=== PATIENT | female | born 1960 | race Caucasian/White ===

== ENCOUNTER 2017-04-04 07:04 | Emergency (ER) | payer OTHER ==
[2017-04-04 07:14] VITALS: BP 153/92
[2017-04-04] MEDS ORDERED: Tetracaine 0.5% OPTH.SOL 4 ML* 1 DROP BTL LEFT EYE ONE (07:24)
[2017-04-04] MEDS ORDERED: Fluorescein Sodium TOPICAL* 1 MG TEST OPHTHALMIC ONE (07:24)
[2017-04-04] MEDS ORDERED: HYDROcodone/ACETAMIN 5-325 MG* 1 TAB PO ONE (07:29)
[2017-04-04] MEDS ORDERED: Erythromycin OPTH OINT* APPLIC OINT LEFT EYE ONE (07:55)
--- NOTE | 2017-04-04 12:35 | UC ---
Larry Caban Angela, scribed for Jacquie Pyle DO on 04/04/17 at 0718 . Eye Complaint HPI - HPI Summary HPI Summary: This pt is a 57 y/o female presenting to [facility] c/o left eye pain since 04:00 this morning. She states her pain woke her up from sleep, and it was painful before opening her eye. Pt denies any known injury or trauma to her eye. Pt reports she did open her eye today in the morning and was able to see to out off it. Currently notes her left eye is blurry. Her pain is aggravated with movement of eyeball from side to side. Pt describes her pain as a "sharp rock inside" and feels like it is on the top. Denies headache, chills, fever, nausea , vomiting, chest pain, cough, rash. She denies wearing contacts. Pt notes she is taking an anti-seizure medication (Carbatrol) for new left sided facial twitching of her cheek. She is being followed up by Dr. Graham. - History of Current Complaint Stated Complaint: PAIN L EYE Time Seen by Provider: 04/04/17 07:10 Hx Obtained From: Patient Hx Last Menstrual Period: post menopause Onset/Duration: Lasting Hours, Still Present Severity Currently: Severe Pain Intensity: 8 Pain Scale Used: 0-10 Numeric Aggravating Factor(s): Other - moving eyeball from side to side Alleviating Factor(s): Nothing Associated Signs And Symptoms: Positive: Negative - Allergies/Home Medications Allergies/Adverse Reactions: Allergies Allergy/AdvReac Type Severity Reaction Status Date / Time No Known Allergies Allergy Verified 04/04/17 07:14 Home Medications: Home Medications Carbamazepine [Carbatrol] 100 mg PO BID 04/04/17 [History Confirmed 04/04/17] PMH/Surg Hx/FS Hx/Imm Hx Other Endocrine History: DENIES: diabetes Other Cardiovascular History: DENIES: HTN - Surgical History Surgical History: Yes Surgery Procedure, Year, and Place: LEFT breast abscess removal - Family History Known Family History: Positive: Diabetes - Daughter - type 1 DM, Other - asthma - Social History Alcohol Use: Occasionally Substance Use Type: None Smoking Status (MU): Never Smoked Tobacco - Immunization History Most Recent Influenza Vaccination: declines Most Recent Tetanus Shot: UTD Review of Systems Constitutional: Negative Skin: Negative Eyes: Blurred Vision - left eye, Other - left eye pain ENT: Negative Respiratory: Negative Cardiovascular: Negative Gastrointestinal: Negative Genitourinary: Negative Motor: Negative Neurovascular: Negative Musculoskeletal: Negative Neurological: Negative Psychological: Negative Is Patient Immunocompromised?: No All Other Systems Reviewed And Are Negative: Yes Physical Exam Triage Information Reviewed: Yes Appearance: Well-Appearing, Well-Nourished Vital Signs: Initial Vital Signs Pulse 94 04/04/17 07:08 Resp 18 04/04/17 07:08 BP 153/92 04/04/17 07:08 Pulse Ox 98 04/04/17 07:08 Vital Signs Reviewed: Yes Eyes: Positive: Conjunctiva Inflamed, Other: - All pain including pain with movement of her eyeball resolves completely with application of tetracaine. There is a corneal abrasion across the diameter (approx. 1 cm) of the cornea as seen with fluorescein uptake. ENT: Positive: Hearing grossly normal. Negative: Muffled voice, Hoarse voice Neck exam: Normal Neck: Positive: Supple Respiratory: Positive: Lungs clear, Normal breath sounds, No respiratory distress, No accessory muscle use Cardiovascular: Positive: RRR, No Murmur Musculoskeletal Exam: Normal Neurological: Positive: Alert, Muscle Tone Normal Psychological Exam: Normal Psychological: Positive: Age Appropriate Behavior Skin Exam: Normal, Other - warm, dry, normal color Eye Complaint Course/Dx - Course Course Of Treatment: In the ED course, tetracaine was used. All pain including pain with movement of her eyeball resolves completely with application of tetracaine. There is a corneal abrasion across the diameter (approx. 1 cm) of the cornea as seen with fluorescein uptake. [07:53] I spoke with pharmacy in regards to drug interaction between anti-seizure medication (Carbamazapine) and erythromycin ointment. Pt will be discharged with a prescription for erythromycin ointment and percocet. She is advised to follow up with her opthalmologist, Dr. Guerra, tomorrow. Elevated blood pressure noted likely due to pt's condition. Medications reviewed. Allergies reviewed. - Differential Dx/Diagnosis Differential Diagnosis/HQI/PQRI: Conjunctivitis, Corneal Abrasion Provider Diagnoses: Corneal abrasion Discharge - Discharge Plan Condition: Stable Disposition: HOME Prescriptions: Erythromycin OPTH OINT* [Erythromycin 0.5% OPTH OINT*] 1 applic LEFT EYE QID #1 tube oxyCODONE/Acetamin 5/325 MG* [Percocet 5/325 TAB*] 1 tab PO Q4H PRN #14 tab MDD 6 tabs PRN Reason: Pain Patient Education Materials: Erythromycin (Into the eye), Corneal Abrasion (ED) Referrals: Jamel Guerra MD [Medical Doctor] - 1 Day (THIS FOLLOW UP VISIT IS IMPORTANT. WE WANT YOU TO BE EVALUATED AND FOLLOWED BY A SPECIALIST.) Martine Jerome MD [Primary Care Provider] - If Needed Additional Instructions: Oral narcotic given: You've been given an oral narcotic pain medication. The effects may begin 30 minutes to an hour after swallowing the medicine. You should have significant pain relief. The effects will usually last at least four hours. Most oral narcotics contain a dose of acetaminophen (Tylenol). Don't take any other acetaminophen-containing medicines until you've discussed it with the doctor. This drug is a narcotic -- it will impair your judgment, slow your reaction time, and make you sleepy. Narcotics also can cause nausea and constipation. If you feel sick, you should eat. A full stomach reduces the nausea that pain pills can cause. You should not drive or work with machinery (including blenders, knives, lawn mowers or sewing machines) for six to eight hours. Don't do anything requiring mental alertness until the effects of the medication are gone. Do not take any alcohol or sedatives, and don't use any other medication without checking with your physician. DISCUSSED, THIS MEDICATION CAN LOWER YOUR BLOOD PRESSURE. THIS CAN INCREASE YOUR RISK OF FAINTING AND FALLING. PLEASE TAKE CARE WHEN CHANGING POSITIONS SUCH GOING FROM SUPINE TO SITTING OR STANDING. The documentation as recorded by the Larry crump Angela accurately reflects the service I personally performed and the decisions made by me, Jacquie Pyle DO.
== END 2017-04-04 07:58 | disposition home or self-care (01) ==
LOC: UCEAST 07:04
DX: S05.02XA Injury of conjunctiva and corneal abrasion without foreign body, left eye, initial encounter (principal); X58.XXXA Exposure to other specified factors, initial encounter; Y93.9 Activity, unspecified; Y92.9 Unspecified place or not applicable
CPT/HCPCS: 99212; A9270-GY; G0463

== ENCOUNTER 2018-03-14 11:51 | Emergency (ER) | payer OTHER ==
[2018-03-14 12:04] VITALS: BP 126/79
--- NOTE | 2018-03-14 12:10 | UC ---
Elbow Pain - HPI Summary HPI Summary: 57 yo female presents with RIGHT elbow pain. She tells me that months ago she was playing tennis and felt a pull in her right elbow. Has been painful since that time. Worse with lifting, pushing, and pulling. She has been icing the area and taking NSAIDs with no relief. Denies specific injury, numbness, or tingling. - History of Current Complaint Chief Complaint: UCUpperExtremity Stated Complaint: ELBOW PAIN Time Seen by Provider: 03/14/18 12:09 Hx Obtained From: Patient Hx Last Menstrual Period: post menopause Onset/Duration: Weeks Severity Initially: Mild Severity Currently: Mild Pain Intensity: 2 Pain Scale Used: 0-10 Numeric - Allergies/Home Medications Allergies/Adverse Reactions: Allergies Allergy/AdvReac Type Severity Reaction Status Date / Time No Known Allergies Allergy Verified 03/14/18 12:04 Home Medications: Home Medications NK [No Home Medications Reported] 03/14/18 [History Confirmed 03/14/18] PMH/Surg Hx/FS Hx/Imm Hx - Additional Past Medical History Additional PMH: None - Surgical History Surgical History: Yes Surgery Procedure, Year, and Place: LEFT breast abscess removal - Family History Known Family History: Positive: Diabetes - Daughter - type 1 DM - Social History Occupation: Employed Full-time Lives: With Family Alcohol Use: Occasionally Substance Use Type: None Smoking Status (MU): Never Smoked Tobacco - Immunization History Most Recent Influenza Vaccination: declines Most Recent Tetanus Shot: UTD Review of Systems All Other Systems Reviewed And Are Negative: Yes Constitutional: Positive: Negative Skin: Positive: Negative Respiratory: Positive: Negative Cardiovascular: Positive: Negative Neurovascular: Positive: Negative Musculoskeletal: Positive: Other: - Right elbow pain Neurological: Positive: Negative Psychological: Positive: Negative Physical Exam - Summary Physical Exam Summary: GENERAL: NAD. WDWN. No pain distress. SKIN: No rashes, sores, lesions, or open wounds. CHEST: No accessory muscle use. Breathing comfortably and in no distress. CV: Pulses intact radial and ulnar. Cap refill <2seconds MSK: RIGHT ELBOW: TTP at medial epicondyle. Pain at medial epicondyle with middle finger flexion. FROM. Strength 5/5 including sales superintendent strength. No edema or obvious bony deformities. NEURO: Alert. Sensations intact hand and all fingers. PSYCH: Age appropriate behavior. Triage Information Reviewed: Yes Vital Signs: Initial Vital Signs Temp 97.2 F 03/14/18 12:00 Pulse 60 03/14/18 12:00 Resp 18 03/14/18 12:00 BP 126/79 03/14/18 12:00 Pulse Ox 100 03/14/18 12:00 Vital Signs Reviewed: Yes Elbow Pain Course/Dx - Course Course Of Treatment: Medial epicondylitis. She has tried NSAIDs, rest, braces, and ice - therefore will refer her to Sports Medicine for further evaluation. - Differential Dx/Diagnosis Provider Diagnosis: Medial epicondylitis Discharge - Sign-Out/Discharge Documenting (check all that apply): Patient Departure All imaging exams completed and their final reports reviewed: No Studies - Discharge Plan Condition: Stable Disposition: HOME Patient Education Materials: Tennis Elbow (ED) Referrals: Martine Jerome MD [Primary Care Provider] - [facility] [Provider Group] - As Soon As Possible Additional Instructions: If you develop a fever, shortness of breath, chest pain, new or worsening symptoms - please call your PCP or go to the ED. Continue to rest and ice your elbow Take 600mg ibuprofen every 6-8hours as needed for pain Please call Sports Medicine at the number below to schedule a follow up appointment for further evaluation - Billing Disposition and Condition Condition: STABLE Disposition: Home
== END 2018-03-14 12:28 | disposition home or self-care (01) ==
LOC: UCEAST 11:51
DX: M77.01 Medial epicondylitis, right elbow (principal)
CPT/HCPCS: 99211; G0463